=== PATIENT | female | born 1990 | race Caucasian/White ===

== ENCOUNTER 2016-07-16 23:23 | Emergency (ER) | payer OTHER | END 2016-07-17 02:05 | disposition home or self-care (01) | LOC: ER1 23:23 | DX: H92.03 Otalgia, bilateral (principal); F17.200 Nicotine dependence, unspecified, uncomplicated; Z88.0 Allergy status to penicillin | CPT/HCPCS: 99282 ==

== ENCOUNTER 2021-07-28 19:17 | Emergency (ER) | payer OTHER ==
[~2021-07-28 19:17] MED LIST: COLACE 100MG C100 MG PO; IBUPROFEN600 MG PO; LORTAB 5-325 M1 EACH PO
[2021-07-28] MEDS ORDERED: CLINDAMYCIN HC150 MG PO (20:04)
== END 2021-07-28 20:12 | disposition home or self-care (01) ==
LOC: ER1 19:17
DX: K02.9 Dental caries, unspecified (principal); K04.7 Periapical abscess without sinus; F17.210 Nicotine dependence, cigarettes, uncomplicated; Z88.0 Allergy status to penicillin
CPT/HCPCS: 99282